=== PATIENT | female | born 1955 | race Caucasian/White ===

== ENCOUNTER 2017-12-13 02:55 | Emergency (ER) | payer SELFPAY ==
[2017-12-13] MEDS ORDERED: NS 1,000 ML IV ONE (03:12)
[2017-12-13] MEDS ORDERED: ONDANSETRON 4 MG/2 ML VIAL IVP ONE (03:12)
--- NOTE | 2017-12-13 03:12 | EDPHY ---
H & P Stated Complaint: Flu symptoms, progressed to back and kidney pains HPI/ROS: HPI CHIEF COMPLAINT: Right-sided CVA pain, nausea, vomiting, recent flu-like illness HISTORY OF PRESENT ILLNESS: This patient very pleasant 62-year-old female she has a history pancreatitis, remotely, otherwise rather healthy, she presents emergency room with nausea vomiting and diarrhea and flu-like illness for the past week. She states on Wednesday she developed a flu-like illness with muscle aches and joint pain, chills, throughout the week she did okay. On Wednesday got slightly worse. She developed some nausea vomiting and diarrhea over the weekend. Nonbilious nonbloody vomiting. Watery diarrhea. She now presents emergency room as she states she has right back pain woke her up from sleep. Located right CVA, very mild not sharp and stabbing. Additionally she has had some abdominal cramping and GI upset. Reports nausea. Denies chest pain or shortness of breath. Denies productive cough. Denies pleuritic pain. Past Medical History: Pancreatitis Past Surgical History: No recent surgery Social History: Lives locally, denies drugs alcohol tobacco. Family History: Noncontributory ROS REVIEW OF SYSTEMS: A comprehensive 10 point review of systems is otherwise negative aside from elements mentioned in the history of present illness. Exam Constitutional well nontoxic normal vital signs at triage, triage nursing summary reviewed, vital signs reviewed, awake/alert. Eyes normal conjunctivae and sclera, EOMI, PERRLA. HENT normal inspection, atraumatic, moist mucus membranes, no epistaxis, neck supple/ no meningismus, no raccoon eyes. Respiratory clear to auscultation bilaterally, normal breath sounds, no respiratory distress, no wheezing. Cardiovascular rate normal, regular rhythm, no murmur, no edema, distal pulses normal. Gastrointestinal cannot elicit any significant tenderness on exam, soft, non- tender, no rebound, no guarding, normal bowel sounds, no distension, no pulsatile mass. Genitourinary no CVA tenderness. Musculoskeletal no midline vertebral tenderness, full range of motion, no calf swelling, no tenderness of extremities, no meningismus, good pulses, neurovascularly intact. Skin pink, warm, & dry, no rash, skin atraumatic. Neurologic awake, alert and oriented x 3, AAOx3, moves all 4 extremities equally, motor intact, sensory intact, CN II-XII intact, normal cerebellar, normal vision, normal speech. Psychiatric normal mood/affect. Heme/Lymph/Immune no lymphadenopathy. Differential Diagnosis: Includes but is not limited to in a particular order flu-like illness, dehydration, UTI, pyelonephritis, electrolyte disturbance Medical Decision Making: Plan for this patient IV establishment IV fluid bolus 1 L normal saline, 4 mg IV Zofran for nausea, check urinalysis for infection, check basic blood work, check electrolytes, EKG, and re-evaluate. Check influenza Re-evaluation: 0450: Re-examination at this time this patient is resting comfortably no acute distress. Blood work has been reviewed unremarkable. No high white blood cell count. Electrolytes are appropriate. Urinalysis does show possibly very small infection. I sent this for urine culture. Additionally I gave her dose of Keflex here in emergency room Keflex take-home pack. Prescription for Keflex. Return precautions discussed with the patient she understands return emergency room she develops worsening abdominal pain back pain fever vomiting. Prescription given for Keflex and Zofran. Return precautions discussed. Source: Patient - Personal History Current Tetanus Diphtheria and Acellular Pertussis (TDAP): Yes - Medical/Surgical History Hx Asthma: No Hx Chronic Respiratory Disease: No Hx Diabetes: No Hx Cardiac Disease: No Hx Renal Disease: No Hx Cirrhosis: No Hx Alcoholism: No Hx HIV/AIDS: No Hx Splenectomy or Spleen Trauma: No Other PMH: pancreatitis - Social History Smoking Status: Never smoked Constitutional: Initial Vital Signs Temperature (C) 36.4 C 12/13/17 02:56 Heart Rate 96 12/13/17 02:56 Respiratory Rate 19 12/13/17 02:56 Blood Pressure 139/86 H 12/13/17 02:56 O2 Sat (%) 96 12/13/17 02:56 O2 Delivery Mode Room Air Allergies/Adverse Reactions: No Known Allergies Allergy (Unverified 12/13/17 02:56) Home Medications: Medication Instructions Recorded Cephalexin [Keflex] 500 mg PO Q6H #28 cap 12/13/17 DEXLANSOPRAZOLE 12/13/17 Ondansetron HCl [Zofran] 4 mg PO Q4-6PRN PRN #10 tablet 12/13/17 Ondansetron Odt [Zofran Odt 4 mg 4 mg PO Q4 12/13/17 (*)] Medical Decision Making - Data Points Laboratory Results: Laboratory Results 12/13/17 03:30 12/13/17 03:30 12/13/17 12/13/17 12/13/17 03:30 03:30 03:30 WBC RBC Hgb Hct MCV MCH MCHC RDW Plt Count MPV Neut % (Auto) Lymph % (Auto) [place] % (Auto) Eos % (Auto) Baso % (Auto) Nucleat RBC Rel Count Absolute Neuts (auto) Absolute Lymphs (auto) Absolute Monos (auto) Absolute Eos (auto) Absolute Basos (auto) Absolute Nucleated RBC Immature Gran % Immature Gran # Sodium 144 mEq/L mEq/L (135-145) Potassium 3.7 mEq/L mEq/L (3.5-5.2) Chloride 107 mEq/L mEq/L (97-110) Carbon Dioxide 24 mEq/l mEq/l (22-31) Anion Gap 13 mEq/L mEq/L (8-16) BUN 12 mg/dL mg/dL (7-23) Creatinine 0.8 mg/dL mg/dL (0.6-1.0) Estimated GFR > 60 Glucose 95 mg/dL mg/dL (70-100) Calcium 9.4 mg/dL mg/dL (8.5-10.4) Total Bilirubin 0.8 mg/dL mg/dL (0.1-1.4) Conjugated Bilirubin 0.4 mg/dL mg/dL (0.0-0.5) Unconjugated Bilirubin 0.4 mg/dL mg/dL (0.0-1.1) AST 27 IU/L IU/L (14-46) ALT 52 IU/L IU/L (9-52) Alkaline Phosphatase 97 IU/L IU/L (38-126) Troponin I < 0.012 ng/mL ng/mL (0.000-0.034) Total Protein 6.9 g/dL g/dL (6.3-8.2) Albumin 3.9 g/dL g/dL (3.5-5.0) Lipase 70 IU/L IU/L (23-300) Urine Color YELLOW Urine Appearance CLEAR Urine pH 7.0 (5.0-7.5) Ur Specific [place] 1.009 (1.002-1.030) Urine Protein NEGATIVE (NEGATIVE) Urine Ketones NEGATIVE (NEGATIVE) Urine Blood 1+ H (NEGATIVE) Urine Nitrate NEGATIVE (NEGATIVE) Urine Bilirubin NEGATIVE (NEGATIVE) Urine Urobilinogen NEGATIVE EU EU (0.2-1.0) Ur Leukocyte Esterase TRACE H (NEGATIVE) Urine RBC 3-5 /hpf H /hpf (0-3) Urine WBC 1-3 /hpf /hpf (0-3) Ur Epithelial Cells TRACE /lpf /lpf (NONE-1+) Urine Glucose NEGATIVE (NEGATIVE) Nasal Influenza A PCR NEGATIVE FOR FLU A (NEGATIVE) Nasal Influenza B PCR NEGATIVE FOR FLU B (NEGATIVE) 12/13/17 03:30 WBC 5.22 10^3/uL 10^3/uL (3.80-9.50) RBC 4.15 10^6/uL L 10^6/uL (4.18-5.33) Hgb 13.7 g/dL g/dL (12.6-16.3) Hct 39.4 % % (38.0-47.0) MCV 94.9 fL fL (81.5-99.8) MCH 33.0 pg pg (27.9-34.1) MCHC 34.8 g/dL g/dL (32.4-36.7) RDW 12.7 % % (11.5-15.2) Plt Count 283 10^3/uL 10^3/uL (150-400) MPV 10.0 fL fL (8.7-11.7) Neut % (Auto) 51.1 % % (39.3-74.2) Lymph % (Auto) 31.2 % % (15.0-45.0) [place] % (Auto) 14.4 % H % (4.5-13.0) Eos % (Auto) 2.5 % % (0.6-7.6) Baso % (Auto) 0.4 % % (0.3-1.7) Nucleat RBC Rel Count 0.0 % % (0.0-0.2) Absolute Neuts (auto) 2.67 10^3/uL 10^3/uL (1.70-6.50) Absolute Lymphs (auto) 1.63 10^3/uL 10^3/uL (1.00-3.00) Absolute Monos (auto) 0.75 10^3/uL 10^3/uL (0.30-0.80) Absolute Eos (auto) 0.13 10^3/uL 10^3/uL (0.03-0.40) Absolute Basos (auto) 0.02 10^3/uL 10^3/uL (0.02-0.10) Absolute Nucleated RBC 0.00 10^3/uL 10^3/uL (0-0.01) Immature Gran % 0.4 % % (0.0-1.1) Immature Gran # 0.02 10^3/uL 10^3/uL (0.00-0.10) Sodium Potassium Chloride Carbon Dioxide Anion Gap BUN Creatinine Estimated GFR Glucose Calcium Total Bilirubin Conjugated Bilirubin Unconjugated Bilirubin AST ALT Alkaline Phosphatase Troponin I Total Protein Albumin Lipase Urine Color Urine Appearance Urine pH Ur Specific [place] Urine Protein Urine [place]ones Urine Blood Urine Nitrate Urine Bilirubin Urine Urobilinogen Ur Leukocyte Esterase Urine RBC Urine WBC Ur Epithelial Cells Urine Glucose Nasal Influenza A PCR Nasal Influenza B PCR Medications Given: Discontinued Medications Sodium Chloride (Ns) 1,000 mls @ 0 mls/hr IV EDNOW ONE; Wide Open PRN Reason: Protocol Stop: 12/13/17 03:13 Last Admin: 12/13/17 03:12 Dose: 1,000 mls Ondansetron HCl (Zofran) 4 mg IVP EDNOW ONE Stop: 12/13/17 03:13 Last Admin: 12/13/17 03:40 Dose: Not Given Departure - Departure Disposition: Home, Routine, Self-Care Clinical Impression: UTI (urinary tract infection) due to Enterococcus Condition: Good Instructions: Urinary Tract Infection in Women (ED), Cephalexin (By mouth) Additional Instructions: 1. [place]t diet next 24-48 hours. 2. Return emergency room if he develops worsening abdominal pain fever or vomiting. 3. Antibiotic as prescribed. 4. Zofran as needed for nausea. Referrals: CLIFF GUPTA [Primary Care Provider] - As per Instructions Prescriptions: Cephalexin [Keflex] 500 mg PO Q6H #28 cap Ondansetron HCl [Zofran] 4 mg PO Q4-6PRN PRN #10 tablet PRN Reason: Nausea/Vomiting, Use 1st
[2017-12-13 03:14] VITALS: O2SAT 96
[2017-12-13 03:37] LABS: PLATELET COUNT 283 10^3/uL (150-400)
--- NOTE | 2017-12-13 03:38 | CPEKG ---
Heart Rate: 74 RR Interval: 811 P-R Interval: 172 QRSD Interval: 86 QT Interval: 416 QTC Interval: 462 P [place]: 5 QRS [place]: 9 T Wave [place]: 37 EKG Severity - NORMAL ECG - EKG Impression: SINUS RHYTHM Preliminary Awaiting MD Review
[2017-12-13] MEDS ORDERED: cefTRIAXone 1 GM in STERILE WATER INJ 10 ML IV ONE (04:16)
[2017-12-13] MEDS ORDERED: CEPHALEXIN 500 MG CAP PO ONE (04:50)
[2017-12-13] MEDS ORDERED: CEPHALEXIN 500MG PREPACK#4 BTL TAKEHOME ONE (04:50)
[2017-12-13 05:06] VITALS: BP 132/80; PULSE 71; RESP 16; TEMP 98.2
== END 2017-12-13 05:06 | disposition home or self-care (01) ==
DX: N39.0 Urinary tract infection, site not specified (principal); B95.2 Enterococcus as the cause of diseases classified elsewhere; E86.9 Volume depletion, unspecified
CPT/HCPCS: J0696

== ENCOUNTER → 2018-09-02 | Outpatient (CLI) | payer OTHER | LOC: BMCIMAGING 10:21 | PROVIDERS: ATTEND Physician Assistant Medical | DX: R51 Headache (principal) ==